=== PATIENT | female | born 1955 | race Caucasian/White ===

== ENCOUNTER 2017-06-01 19:31 | Emergency (ER) | payer BC ==
[~2017-06-01] VITALS: Ht 160 cm; Wt 68.0 kg
[2017-06-01] MEDS ORDERED: LORAZEPAM INJ 2 MG/ML VIAL ONE (19:52)
[2017-06-01] MEDS ORDERED: IV NS 0.9% 1,000 ML ONE (19:53)
[2017-06-01] MEDS ORDERED: IV SET PRIMARY 1 EA INFUS.SET MC ONE (19:53)
--- NOTE | 2017-06-01 19:53 | NUR ---
61 YO FEMALE BB RA. PT IS ALERT X 3, C/O Anxiety x1 mos, taking buspar, xanax, & prestiq but feels it's not helping. PT AMBULATED TO ER BED WITH STEADY GAIT, SKIN WARM AND DRY, RR EVEN AND UNLABORED. PT GOWNED, PLACE DON ABRASIVE SAWYER. WILL CONITNUE TO MONITOR
[2017-06-01] MEDS ORDERED: IV NS 0.9% 1,000 ML BAG IV ONE (20:00)
[2017-06-01] MEDS ORDERED: LORAZEPAM INJ 2 MG/ML VIAL IV ONE (20:00)
--- NOTE | 2017-06-01 20:00 | NUR ---
20 G LEFT AC IV STARTED. BLOOD SAMPLE OBTAINED AND SENT TO LAB. MEDICATED PT ORDERED
--- NOTE | 2017-06-01 20:11 | NUR ---
RADIOLOGY TEAM AT BED SIDE FOR X RAY
[2017-06-01 20:13] LABS: BASOPHILS # (AUTO) 0.1 /CMM (0.0-0.2); EOSINOPHILS # (AUTO) 0.1 /CMM (0.0-0.7); EOSINOPHILS % (AUTO) 1.1 % (0.0-6.0); HEMATOCRIT 49 % (33-45); HEMOGLOBIN 16.4 g/dL (11.5-14.8); LYMPHOCYTES # (AUTO) 2.2 /CMM (0.8-4.8); LYMPHOCYTES % (AUTO) 24.4 % (20.0-44.0); MEAN CORPUSCULAR HEMOGLOBIN 29 PG (26.0-33.0); MEAN CORPUSCULAR HGB CONC 33 g/dl (31.0-36.0); MEAN CORPUSCULAR VOLUME 88 fL (82-100); MONOCYTES # (AUTO) 0.6 /CMM (0.1-1.30); NEUTROPHILS % (AUTO) 66.5 % (43.0-81.0); PLATELET COUNT (AUTO) 226 /CMM (150-450); RDW COEFFICIENT OF VARIATION 12.6 (11.5-15.0); RED BLOOD CELL COUNT(AUTO) 5.62 MIL/uL (4.0-5.2)
[2017-06-01 20:19] LABS: CALCIUM, SERUM 8.8 mg/dL (8.5-10.1); CARBON DIOXIDE 31 mmol/L (21-32); CHLORIDE 103 mmol/L (98-107); GLUCOSE 101 mg/dL (74-106); POTASSIUM 3.4 mmol/L (3.5-5.1); SODIUM SERUM 141 mmol/L (136-145); UREA NITROGEN, BLOOD 8 mg/dL (7-18)
[2017-06-01 20:28] LABS: TROPONIN I < 0.017 ng/mL (0.00-0.056)
[2017-06-01] MEDS ORDERED: POTASSIUM CHLORIDE 20 MEQ TAB.PRT.SR PO ONE ×2 (21:00→21:04)
--- NOTE | 2017-06-01 21:10 | NUR ---
Patient discharged to home in stable condition. Written and verbal after care instructions given. Patient verbalizes understanding of instruction.IV removed. Catheter intact and site benign. Pressure and 4x4 applied to site. No bleeding noted. PT ambulatory with a steady gait
[2017-06-01 21:11] VITALS: BP 148/98
== END 2017-06-01 21:13 | disposition home or self-care (01) ==
LOC: ER 19:37
DX: F41.9 Anxiety disorder, unspecified (principal)
CPT/HCPCS: 36415; 71010; 80048; 84484; 85025; 93005; 96361; 96374; 99285; A4606; J2060; J7030; Z7610